=== PATIENT | male | born 1975 | race African-American/Black ===

== ENCOUNTER 2016-12-08 18:33 | Emergency (ER) | payer MEDICARE, MEDICAID ==
[2016-12-08 19:48] VITALS: BP 124/84
--- NOTE | 2016-12-08 19:56 | ER Document Report ---
ED Medical Screen (RME) - General Stated Complaint: LOW BACK PAIN, LEFT SIDE PAIN Time seen by provider: 19:52 Mode of Arrival: Ambulatory Information source: Patient Notes: 41-year-old male presents to ED for low back pain on the left side since . Patient has a history of pain in this area. No new injury. No flank pain no sciatic pain. No urinary symptoms. Denies loss of control of bowel or bladder I have greeted and performed a rapid initial assessment of this patient. A comprehensive ED assessment and evaluation of the patient, analysis of test results and completion of medical decision making process will be conducted by an additional ED providers. Physical Exam - Vital signs Vitals: Temp Pulse Resp BP Pulse Ox 98.1 F 78 16 124/84 98 12/08/16 19:45 12/08/16 19:45 12/08/16 19:45 12/08/16 19:45 12/08/16 19:45 Course - Vital Signs Vital signs: Temp Pulse Resp BP Pulse Ox 98.1 F 78 16 124/84 98 12/08/16 19:45 12/08/16 19:45 12/08/16 19:45 12/08/16 19:45 12/08/16 19:45
== END 2016-12-09 00:40 | disposition left against medical advice (07) ==
LOC: ER 18:33
DX: M54.5 Low back pain (principal)
CPT/HCPCS: 99281

== ENCOUNTER → 2017-03-19 | Outpatient (CLI) | payer MEDICARE, MEDICAID ==
[2017-03-19 15:12] LABS: HEMATOCRIT 45.3 % (37.9-51.0); HEMOGLOBIN 14.8 g/dL (13.5-17.0); HGB HCT DIFFERENCE -0.9; MEAN CORPUSCULAR HEMOGLOBIN 26.8 pg (27.0-33.4); MEAN CORPUSCULAR HGB CONC 32.6 g/dL (32.0-36.0); MEAN CORPUSCULAR VOLUME 82 fl (80-97); RED BLOOD COUNT 5.51 10^6/uL (4.35-5.55); RED CELL DISTRIBUTION WIDTH 13.3 % (11.5-14.0); WHITE BLOOD COUNT 6.7 10^3/uL (4.0-10.5)
[2017-03-19 15:31] LABS: ANION GAP 13 (5-19); BLOOD UREA NITROGEN 7 mg/dL (7-20); C-REACTIVE PROTEIN 5.4 mg/L (<10.0); CALCIUM 9.7 mg/dL (8.4-10.2); CARBON DIOXIDE 27 mmol/L (22-30); CHLORIDE 103 mmol/L (98-107); CREATININE RESULT 0.88 mg/dL (0.52-1.25); GLUCOSE 66 mg/dL (75-110); POTASSIUM 4.3 mmol/L (3.6-5.0); SODIUM 142.5 mmol/L (137-145)
== END ==
LOC: LAB 14:42
PROVIDERS: ATTEND Physician Assistant Surgical
DX: K51.911 Ulcerative colitis, unspecified with rectal bleeding (principal); R10.12 Left upper quadrant pain
CPT/HCPCS: 36415; 80048; 85027; 86140